=== PATIENT | female | born 1955 | race Caucasian/White ===

== ENCOUNTER 2016-09-29 16:05 | Emergency (ER) | payer BC, OTHER ==
--- NOTE | 2016-09-29 16:17 | PDOC ---
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 Right lat neck spasm and LBP. Pt able to ambulate w/o difficulties.
[2016-09-29 16:19] VITALS: BP 150/58; PULSE 65; TEMP 98.3; BMI 29.2
[2016-09-29] MEDS ORDERED: KETOROLAC TROMETHAMINE 60 MG/2 ML VIAL IM ONE (17:07)
--- NOTE | 2016-09-29 17:27 | PDOC ---
History of Present Illness - General Chief Complaint: Injury Stated Complaint: FALL/ NECK PAIN, BACK PAIN Time Seen by Provider: 09/29/16 16:15 History Source: Patient Exam Limitations: No Limitations - History of Present Illness Initial Comments: 09/29/16 17:27 60 yr female with c/o neck pain headache and pain to right thigh after slip and fall in the bathroom of a clients house at work. Pt states she fell 6 days ago. Pt denies LOC no head trauma. Pt taking aleve with some relief. Occurred: reports: last week Severity: reports: moderate Method of Injury: Yes: fall Past History - Past Medical History Allergies/Adverse Reactions: Allergies Allergy/AdvReac Type Severity Reaction Status Date / Time Sulfa (Sulfonamide Allergy Verified 09/29/16 16:15 Antibiotics) Home Medications: Ambulatory Orders NK [No Known Home Medication] 09/29/16 Cancer: Yes (endometrial ca) GI Disorders: Yes (gerd) - Surgical History Cholecystectomy: Yes - Psycho/Social/Smoking Cessation Hx Anxiety: No Suicidal Ideation: No Smoking History: Never smoked Have you smoked in the past 12 months: No Information on smoking cessation initiated: No Hx Alcohol Use: No Drug/Substance Use Hx: No Substance Use Type: None Trauma Specific PMHX - Complaint Specific PMHX Arthritis: No Back Injury: No Neck Injury: No Hx Sacro Iliac Joint Dysfunction: No Review of Systems - Review of Systems Able to Perform ROS?: Yes Is the patient limited [place] proficient: No Constitutional: No: Symptoms Reported HEENTM: No: Symptoms Reported Respiratory: No: Symptoms reported Cardiac (ROS): No: Symptoms Reported ABD/GI: No: Symptoms Reported, Abdominal cramping : No: Symptoms Reported Musculoskeletal: Yes: Symptoms Reported, See HPI, Back Pain, Neck Pain, Other ( pain to right thigh ) Integumentary: No: Symptoms Reported Neurological: No: Symptoms reported *Physical Exam - Vital Signs Last Vital Signs Temp Pulse Resp BP Pulse Ox 98.3 F 65 18 150/58 100 09/29/16 16:16 09/29/16 16:16 09/29/16 16:16 09/29/16 16:16 09/29/16 16:16 - Physical Exam General Appearance: Yes: Nourished, Appropriately Dressed HEENT: positive: EOMI, CARLOS, Normal ENT Inspection, TMs Normal, Pharynx Normal Neck: positive: Supple. negative: Tender Respiratory/Chest: positive: Lungs Clear, Normal Breath Sounds Cardiovascular: positive: Regular Rhythm, Regular Rate Gastrointestinal/Abdominal: positive: Normal Bowel Sounds, Soft. negative: Tender Musculoskeletal: positive: Normal Inspection, Muscle Spasm (upper back ttp no vetebral tenderness). negative: CVA Tenderness, CVA Tenderness (R), CVA Tenderness (L) Extremity: positive: Normal Capillary Refill, Normal Inspection, Normal Range of Motion, Other (echymosis right hip /thigh area [id number] ) Integumentary: positive: Normal Color, Dry, Warm Neurologic: positive: Fully Oriented, Alert, Normal Mood/Affect, Normal Response , Motor Strength 5/5 Medical Decision Making - Medical Decision Making 09/29/16 17:43 cc: fall injured right hip and thigh, back of neck upper back no head trauma c/o headache and neck pain, right thigh pain will give toradol after CT head resulted 09/29/16 17:52 09/29/16 18:26 *DC/Admit/Observation/Transfer Diagnosis at time of Disposition: Muscle spasm Contusion Qualifiers: Encounter type: initial encounter Contusion area: hip Laterality: right Qualified Code(s): S70.01XA - Contusion of right hip, initial encounter - Discharge Dispostion Disposition: HOME Condition at time of disposition: Good - Referrals Referrals: STAFF,NOT ON [Primary Care Provider] - - Patient Instructions Additional Instructions: warm compresses to the upper back take flexeril for muscle spasm DO NOT DRIVE OPERATE MACHINERY OR DRINK ALCOHOL WHILE TAKING THIS MEDICATION' take ibuprofen every 6-8hrs for pain as needed, you can take with the flexeril follow with your medical doctor in 3-5 days of no improvement - Post Discharge Activity Work/School Note: Back to Work
[2016-09-29] MEDS ORDERED: KETOROLAC TROMETHAMINE 60 MG/2 ML VIAL ONE (18:54)
== END 2016-09-29 19:02 | disposition home or self-care (01) ==
LOC: JERFT 16:05
DX: S70.01XA Contusion of right hip, initial encounter (principal); M62.838 Other muscle spasm; W01.0XXA Fall on same level from slipping, tripping and stumbling without subsequent striking against object, initial encounter; Y93.89 Activity, other specified; Y92.031 Bathroom in apartment as the place of occurrence of the external cause; Y99.0 Civilian activity done for income or pay
CPT/HCPCS: 70450-TC; 72125-TC; 73523-TC; 73552-TC-RT; 99281-25

== ENCOUNTER 2016-12-07 08:19 | Emergency (ER) | payer BC, OTHER ==
[2016-12-07 08:30] VITALS: BP 153/63; PULSE 72; TEMP 97.8; BMI 28.3
--- NOTE | 2016-12-07 09:04 | PDOC ---
History of Present Illness - General Chief Complaint: Pain Stated Complaint: LT LEG PAIN Time Seen by Provider: 12/07/16 08:49 History Source: Patient Exam Limitations: No Limitations - History of Present Illness Initial Comments: 12/07/16 09:03 61 yr female slipped and fell yesterday on wet floor at home and twisted left knee. 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 no head trauma. Occurred: reports: yesterday Severity: reports: mild Pain Location: reports: lower extremity (left knee) Method of Injury: Yes: fall Loss of Consciousness: no loss of consciousness Associated Symptoms (Fall): denies symptoms Past History - Past Medical History Allergies/Adverse Reactions: Allergies Allergy/AdvReac Type Severity Reaction Status Date / Time Sulfa (Sulfonamide Allergy Verified 12/07/16 08:29 Antibiotics) Home Medications: Ambulatory Orders NK [No Known Home Medication] 12/07/16 Cancer: Yes (endometrial ca) GI Disorders: Yes (gerd) - Surgical History Cholecystectomy: Yes - Psycho/Social/Smoking Cessation Hx Anxiety: No Suicidal Ideation: No Smoking History: Never smoked Have you smoked in the past 12 months: No Hx Alcohol Use: No Drug/Substance Use Hx: No Substance Use Type: None Trauma Specific PMHX - Complaint Specific PMHX Arthritis: No Back Injury: No Neck Injury: No Hx Sacro Iliac Joint Dysfunction: No Review of Systems - Review of Systems Able to Perform ROS?: Yes Is the patient limited [place] proficient: No Constitutional: No: Symptoms Reported HEENTM: No: Symptoms Reported Respiratory: No: Symptoms reported Cardiac (ROS): No: Symptoms Reported ABD/GI: No: Symptoms Reported : No: Symptoms Reported Musculoskeletal: Yes: Symptoms Reported *Physical Exam - Vital Signs Last Vital Signs Temp Pulse Resp BP Pulse Ox 97.8 F 72 20 153/63 97 12/07/16 08:27 12/07/16 08:27 12/07/16 08:27 12/07/16 08:27 12/07/16 08:27 - Physical Exam General Appearance: Yes: Nourished, Appropriately Dressed HEENT: positive: EOMI, CARLOS Respiratory/Chest: positive: Lungs Clear, Normal Breath Sounds Cardiovascular: positive: Regular Rhythm, Regular Rate Gastrointestinal/Abdominal: positive: Normal Bowel Sounds, Soft Musculoskeletal: positive: Normal Inspection Extremity: positive: Normal Capillary Refill, Tender (left knee, medially, swelling noted , nv intact FROM) Integumentary: positive: Normal Color, Dry, Warm Neurologic: positive: Fully Oriented, Alert, Normal Mood/Affect, Normal Response , Motor Strength 12/05 ED Treatment Course - RADIOLOGY Radiology Studies Ordered: Category Date Time Status KNEE 3 POS-LEFT [RAD] Stat Radiology 12/07/16 08:57 Ordered Medical Decision Making - Medical Decision Making 12/07/16 09:21 cc: left knee pain after twisting yesterday while falling, pt did not fall directly on the left knee pt has some mild swelling and tenderness will xray to r/o fracture tony wrap to the left knee *DC/Admit/Observation/Transfer Diagnosis at time of Disposition: Strain of knee Qualifiers: Encounter type: initial encounter Laterality: left Qualified Code(s): S86.912A - Strain of unspecified muscle(s) and tendon(s) at lower leg level, left leg, initial encounter - Discharge Dispostion Disposition: HOME Condition at time of disposition: Good - Referrals Referrals: STAFF,NOT ON [Primary Care Provider] - Errol Delaney MD [Staff Physician] - - Patient Instructions Additional Instructions: use the tony wrap to the knee while awake remove to sleep and bathe apply ice every 2hrs for 20 minutes to the area of pain take motrin (advil) 600mg every 6hrs for pain or swelling elevate the knee when you can and avoid long periods of walking follow with this week for follow up
== END 2016-12-07 09:46 | disposition home or self-care (01) ==
LOC: JERFT 08:19
DX: S86.812A Strain of other muscle(s) and tendon(s) at lower leg level, left leg, initial encounter (principal); W01.0XXA Fall on same level from slipping, tripping and stumbling without subsequent striking against object, initial encounter; Y93.89 Activity, other specified; Y92.018 Other place in single-family (private) house as the place of occurrence of the external cause
CPT/HCPCS: 73562-TC-LT; 99281-25